=== PATIENT | male | born 1980 | race Caucasian/White ===

== ENCOUNTER 2017-10-16 14:12 | Emergency (ER) | payer BC, OTHER ==
[2017-10-16 14:34] VITALS: BP 149/103
[2017-10-16] MEDS ORDERED: Ketorolac 30 MG/ML SDV IVPUSH STA (14:56)
[2017-10-16] MEDS ORDERED: Ondansetron 4 MG/2 ML SDV IVPUSH ONE (14:56)
[2017-10-16] MEDS ORDERED: HYDROmorphone 1 MG/ML Syringe IVPUSH ONE (14:56)
[2017-10-16] MEDS ORDERED: Tamsulosin 0.4 MG Cap.ER PO ONE (14:56)
[2017-10-16] MEDS ORDERED: Sodium Chloride 0.9% 1,000 ML IV SCH (15:00)
--- NOTE | 2017-10-16 15:05 | EDM.PDOC ---
ED HPI GENERAL MEDICAL PROBLEM - General Chief Complaint: Genitourinary Problem Stated Complaint: BACK AND FLANK PAIN Time Seen by Provider: 10/16/17 14:30 Source of Information: Reports: Patient, Family () History Limitations: Reports: No Limitations - History of Present Illness INITIAL COMMENTS - FREE TEXT/NARRATIVE: The patient states that he has some urinary urgency last night, which was resolved by today. He then developed right flank pain around 13:00 this afternoon. It radiates to his right groin and right testicle. It is crampy and stabbing in character. It waxes and wanes. The patient has not identified any modifiers. He has had nausea, but no emesis. No constipation or diarrhea. No recent fever. No prior similar symptoms. The patient has a history of hypertension, and is prescribed lisinopril/HCTZ, however, he states that he has not taken it for the past week because he is a "bad patient". The patient's PCP is Dr. Garduno, in [place]. Right Flank Pain Score (Numeric/FACES): 8 - Related Data Allergies Allergy/AdvReac Type Severity Reaction Status Date / Time acetaminophen [From Vicodin] Allergy Other Verified 10/16/17 14:35 hydrocodone [From Vicodin] Allergy Other Verified 10/16/17 14:35 Penicillins Allergy Hives Verified 10/16/17 14:35 Home Meds: Home Meds Naproxen Sodium [Aleve] 220 mg PO ASDIRECTED PRN 11/13/14 [History] Lisinopril/Hydrochlorothiazide [Lisinopril-Hctz 10-12.5 mg Tab] 10 mg PO DAILY 10/27/16 [History] Hydrocodone/Acetaminophen [Arcadia 5-325 Tablet] 1 - 2 tab PO Q6H PRN #20 tablet 10/16/17 [Rx] Naproxen Sodium [Midol] 2 tab PO Q6HR PRN 10/16/17 [History] Ondansetron [Zofran ODT] 4 mg PO Q8H PRN #10 tab.dis 10/16/17 [Rx] Tamsulosin HCl [Flomax] 1 cap PO QPM PRN #5 cap.er.24h 10/16/17 [Rx] Varenicline Tartrate [Chantix] 1 mg PO DAILY 10/16/17 [History] Past Medical History Cardiovascular History: Reports: Hypertension Musculoskeletal History: Reports: Arthritis Endocrine/Metabolic History: Reports: Obesity/BMI 30+ - Past Surgical History HEENT Surgical History: Reports: Adenoidectomy, Myringotomy w Tube(s), Tonsillectomy Musculoskeletal Surgical History: Reports: Other (See Below) (Right ACL repair, open) Social & Family History - Family History Family Medical History: Noncontributory - Tobacco Use Smoking Status *Q: Current Every Day Smoker Years of Tobacco use: 19 Packs/Tins Daily: 0.2 Packs/Tins Daily Comment: Down from 1.5 ppd - Caffeine Use Caffeine Use: Reports: Energy Drinks - Alcohol Use Days Per Week of Alcohol Use: 1 Number of Drinks Per Day: 1 Total Drinks Per Week: 1 - Recreational Drug Use Recreational Drug Use: Yes Drug Use in Last 12 Months: No - Living Situation & Occupation Living situation: Reports: , with Spouse, with Family (8 kids) Occupation: Employed ([employer]) ED ROS GENERAL - Review of Systems Review Of Systems: ROS reveals no pertinent complaints other than HPI. ED EXAM, RENAL/ - Physical Exam Exam: See Below Exam Limited By: No Limitations General Appearance: Alert, WD/WN, Mild Distress (Appears uncomfortable) Eye Exam: Bilateral Eye: Normal Inspection Ears: Normal External Exam, Hearing Grossly Normal Nose: Normal Inspection, No Blood Throat/Mouth: Normal Inspection, Normal Lips, Normal Voice, No Airway Compromise Head: Atraumatic, Normocephalic Neck: Normal Inspection, Full Range of Motion Respiratory/Chest: No Respiratory Distress, Lungs Clear, Normal Breath Sounds, No Accessory Muscle Use Cardiovascular: Normal Peripheral Pulses, Regular Rate, Rhythm, No Gallop, No JVD, No Murmur, No Rub GI/Abdominal: Normal Bowel Sounds, Soft, Non-Tender (including to the RLQ), No Organomegaly, No Distention, No Abnormal Bruit, No Mass, Other (Obese) (Male) Exam: Deferred Rectal (Males) Exam: Deferred Back Exam: Normal Inspection, Full Range of Motion, CVA Tenderness (R). No: CVA Tenderness (L) Extremities: Normal Inspection, Normal Range of Motion, No Pedal Edema, Normal Capillary Refill Neurological: Alert, Oriented, Normal Cognition, No Motor/Sensory Deficits Psychiatric: Normal Affect Skin Exam: Warm, Dry, Intact, Normal Color, No Rash Course - Vital Signs Last Recorded V/S: Last Vital Signs Temp 36.3 C 10/16/17 14:29 Pulse 66 10/16/17 14:29 Resp 18 10/16/17 14:29 BP 149/103 H 10/16/17 14:29 Pulse Ox 96 10/16/17 14:29 - Orders/Labs/Meds Orders: Active Orders 24 hr Category Date Time Status Strain Urine [RC] ASDIRECTED Care 10/16/17 16:48 Active Sodium Chloride 0.9% [Normal Saline] 1,000 ml Med 10/16/17 15:00 Active IV ASDIRECTED Medication Orders Sodium Chloride (Normal Saline) 1,000 mls @ 150 mls/hr IV ASDIRECTED FIDEL Last Admin: 10/16/17 15:32 Dose: 150 mls/hr Labs: Laboratory Tests 10/16/17 Range/Units 15:30 Urine Color Yellow (Yellow) Urine Appearance Slt cloudy H (Clear) Urine pH 5.5 (5.0-8.0) Ur Specific Hanna > or = 1.030 (1.005-1.030) Urine Protein 2+ H (Negative) Urine Glucose (UA) Negative (Negative) Urine Ketones Negative (Negative) Urine Occult Blood 3+ H (Negative) Urine Nitrite Negative (Negative) Urine Bilirubin 1+ H (Negative) Urine Urobilinogen 0.2 (0.2-1.0) Ur Leukocyte Esterase Negative (Negative) Urine RBC 40-50 H (0-5) /hpf Urine WBC 0-5 (0-5) /hpf Ur Epithelial Cells 0-5 (0-5) /hpf Urine Bacteria Few (FEW) /hpf Urine Mucus Many H (FEW) /hpf Meds: Medications Generic Name Dose Route Start Last Admin Trade Name Freq PRN Reason Stop Dose Admin Sodium Chloride 1,000 mls @ 150 mls/hr 10/16/17 15:00 10/16/17 15:32 Normal Saline IV 150 mls/hr ASDIRECTED FIDEL Administration Discontinued Medications Generic Name Dose Route Start Last Admin Trade Name Freq PRN Reason Stop Dose Admin Hydromorphone HCl 1 mg 10/16/17 14:56 10/16/17 15:33 Dilaudid IVPUSH 10/16/17 14:57 1 mg ONETIME ONE Administration Ketorolac Tromethamine 30 mg 10/16/17 14:56 10/16/17 15:23 Toradol IVPUSH 10/16/17 14:57 30 mg ONETIME STA Administration Ondansetron HCl 4 mg 10/16/17 14:56 10/16/17 15:19 Zofran IVPUSH 10/16/17 14:57 4 mg ONETIME ONE Administration Tamsulosin HCl 0.4 mg 10/16/17 14:56 10/16/17 15:20 Flomax PO 10/16/17 14:57 0.4 mg ONETIME ONE Administration - Re-Assessments/Exams Free Text/Narrative Re-Assessment/Exam: 10/16/17 15:57 Clinically, I strongly suspect the patient is suffering from ureterolithiasis, and I am currently treating him as such, with IV Dilaudid, oral Flomax, IV Toradol, IV Zofran, and IV fluid. I would like to see a urinalysis, to see if there is blood in the urine, however, the patient has not yet been able to provide a urine sample, despite receiving IV fluid. In the interest of time, I will proceed with a CT scan of the abdomen and pelvis without IV contrast. 10/16/17 16:47 CT of the abdomen and pelvis without contrast is read by Dr. Vazquez as: 1. Mild right-sided hydronephrosis caused by 3 mm obstructing stone located within the distal right ureter slightly proximal to the UVJ. 2. Other incidental findings as described above. 10/16/17 16:58 Test results discussed with the patient and his . Today's workup demonstrates that the patient has a 3 mm ureterolith located in the distal right ureter. The patient will be discharged home with a strainer, as well as prescriptions for Arcadia, Zofran, and Flomax. I will refer the patient to Dr. Roberts, should his symptoms not improve within about a week, although the patient was advised that it is highly likely that he will pass this stone on his own within the next few days. I will write a note for the patient's work. Departure - Departure Time of Disposition: 17:00 Disposition: Home, Self-Care 01 Condition: Fair Clinical Impression: Ureterolithiasis - Discharge Information Prescriptions: Hydrocodone/Acetaminophen [Arcadia 5-325 Tablet] 1 - 2 tab PO Q6H PRN #20 tablet PRN Reason: Pain (Severe 7-10) Referrals: PCP,Not In Area [Primary Care Provider] - Jose Rboerts MD [Physician] - Forms: ED Department Discharge, ED Return to Work/School Form Additional Instructions: You were seen in the emergency room for right flank pain radiating to your right groin. Workup in the ER included a urinalysis and a CT scan of your abdomen and pelvis. Your workup confirmed that you have a 3 mm stone in your right ureter, just above your bladder. Based on its size and location, you will MOST LIKELY pass this stone on your own. Take [id number] ibuprofen 3-4 tablets (600-800 mg) every 8 hours, with food, as needed for pain. Take 1 to 2 tablets of the narcotic pain reliever Arcadia up to every 6 hours, as needed for pain not relieved by ibuprofen. If you take Arcadia, do not drive or operate heavy machinery for 10 hours afterwards. Arcadia will likely cause constipation, so consider taking a stool softener. Take one tablet of the anti-spasm medicine Flomax every evening, starting tomorrow evening, 10/17/2017, as needed for pain. Dissolve one tablet of the anti-nausea medicine Zofran on your tongue up to every 8 hours, as needed for nausea/vomiting. Stay adequately hydrated. Strain all of your urine. If you capture the stone, take it to your doctor for analysis. If your symptoms persist through the end of this week, follow-up with the Urologist Dr. Roberts. If any other problems, please do not hesitate to return to the ER. - My Orders Last 24 Hours: My Active Orders 10/16/17 15:00 Sodium Chloride 0.9% [Normal Saline] 1,000 ml IV ASDIRECTED 10/16/17 16:48 Strain Urine [RC] ASDIRECTED - Assessment/Plan Last 24 Hours: My Active Orders 10/16/17 15:00 Sodium Chloride 0.9% [Normal Saline] 1,000 ml IV ASDIRECTED 10/16/17 16:48 Strain Urine [RC] ASDIRECTED
--- NOTE | 2017-10-16 16:44 | CT ---
CT abdomen and pelvis Technique: Multiple axial sections were obtained from above the dome of the diaphragm inferiorly through the pubic symphysis. Intravenous and oral contrast was not utilized. Study has been performed as a ureteral stone protocol. Findings: Mild right-sided hydronephrosis is seen. Ureter is dilated distally almost to the bladder due to a 3 mm obstructing stone located slightly proximal to the UVJ. No other abnormal calcifications are seen along the course of the right or left ureters. No abnormal calcifications are seen within the kidneys. Small portion of the visualized lung bases are clear. Noncontrast appearance of the liver and spleen appears within normal limits. Adrenal glands show no nodule. Pancreas is within normal limits. Gallbladder contains no calcified gallstones. Aorta shows no aneurysmal dilatation. No retroperitoneal adenopathy or mesenteric abnormalities are seen. Appendix is seen which appears normal. No pelvic mass or adenopathy is seen. No free fluid or inflammatory change is seen. 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 Impression: 1. Mild right-sided hydronephrosis caused by 3 mm obstructing stone located within the distal right ureter slightly proximal to the UVJ. 2. Other incidental findings as described above. Diagnostic code #3
== END 2017-10-16 17:34 | disposition home or self-care (01) ==
LOC: JD.ED 14:12
DX: N13.2 Hydronephrosis with renal and ureteral calculous obstruction (principal); I10 Essential (primary) hypertension; Z88.5 Allergy status to narcotic agent; Z88.0 Allergy status to penicillin; Z79.899 Other long term (current) drug therapy; F17.210 Nicotine dependence, cigarettes, uncomplicated
CPT/HCPCS: 74176; 81001; 96361; 96374; 96375; 99284; A9270; J1170; J1885; J2405; J7040